=== PATIENT | male | born 1960 | race Caucasian/White ===

== ENCOUNTER 2023-01-22 22:09 | Inpatient (IN) | payer OTHER ==
[2023-01-22] MEDS ORDERED: SODIUM CHLORIDE 0.9% 500 ML INFUS.BAG IV ONE (23:53)
[2023-01-22] MEDS ORDERED: FAMOTIDINE 20 MG/50 ML IVPB 20 MG/50 ML MG IVPB ONE (23:53)
[2023-01-22] MEDS ORDERED: ACETAMINOPHEN 1000 MG/100 ML BAG IVPB ONE (23:53)
[2023-01-23] MEDS ORDERED: ACETAMINOPHEN INJECTION 100 ML IVPB ONE (00:04)
[2023-01-23] MEDS ORDERED: FAMOTIDINE 20 MG/50 ML IVPB 20 MG/50 ML MG IVPB ONE (00:05)
[2023-01-23 00:32] LABS: BASO % 0.4 % (0-2.0); HEMATOCRIT 42.5 % (35.4-49); HEMOGLOBIN 14.1 GM/dL (11.7-16.9); INR 1.35 (0.83-1.09); LYMPH % 10.7 % (8-40); MCH 28.8 pg (25.7-33.7); MCHC 33.2 g/dl (32.0-35.9); MEAN CELL VOLUME 86.8 fl (80-96); MEAN PLT VOLUME 7.5 fl (7.5-11.1); MONO % 10.5 % (3.8-10.2); NEUT % 77.4 % (42.8-82.8); PLATELET COUNT 361 10^3/uL (134-434); PROTHROMBIN TIME (PATIENT) 15.6 SEC (9.7-13.0); RDW 14.7 % (11.9-15.9); WHITE BLOOD COUNT 13.1 K/mm3 (4.0-10.0)
[2023-01-23 00:33] LABS: EPI CELLS 4 /uL (0-25.1); HYALINE CASTS 2 /uL (0-3.1); PH,URINE 5.5 (5.0-8.0); URINE APPEARANCE CLEAR; URINE BACTERIA 8 /uL (0-1359); URINE BILIRUBIN NEGATIVE (NEGATIVE); URINE COLOR DK YELLOW; URINE GLUCOSE (UA) NEGATIVE (NEGATIVE); URINE KETONE 1+ (NEGATIVE); URINE LEUK ESTERASE NEGATIVE (NEGATIVE); URINE NITRITE NEGATIVE (NEGATIVE); URINE PROTEIN 1+ (NEGATIVE); URINE RBC 27 /uL (0-23.9); URINE WBC 18 /uL (0-25.8)
[2023-01-23 00:34] LABS: ACTIVATED PTT 33.8 SECONDS (25.2-36.5)
[2023-01-23 00:48] LABS: POTASSIUM 3.9 mmol/L (3.5-5.1)
[2023-01-23 00:50] LABS: ALBUMIN 3.4 g/dl (3.4-5.0); BLOOD UREA NITROGEN 10.6 mg/dL (7-18); CALCIUM 9.4 mg/dL (8.5-10.1)
[2023-01-23 00:53] LABS: CREATININE 0.9 mg/dL (0.55-1.3)
[2023-01-23 00:55] LABS: BILIRUBIN,TOTAL 0.7 mg/dL (0.2-1)
[2023-01-23] MEDS ORDERED: PIPERACILLIN/TAZOB 4.5 GM 4.5 GM in DEXTROSE 5%-WATER 100 ML IVPB ONE (03:01)
[2023-01-23] MEDS ORDERED: PIPERACILLIN/TAZOB 4.5 GM 4.5 GM/100 ML BAG IVPB ONE (03:09)
[2023-01-23] MEDS ORDERED: ONDANSETRON 4 MG/2 ML VIAL IVPUSH ONE (03:21)
[2023-01-23] MEDS ORDERED: SODIUM CHLORIDE 0.9% 500 ML INFUS.BAG IV ONE (03:22)
[2023-01-23] MEDS ORDERED: ONDANSETRON 4 MG/2 ML VIAL ONE (03:24)
[2023-01-23] MEDS ORDERED: PIPERACILLIN/TAZOB 3.375 GM 3.375 GM in DEXTROSE 5%-WATER - 50 ML IVPB SCH ×2 (05:30→09:00)
[2023-01-23 06:27] LABS: HEMATOCRIT 40.1 % (35.4-49); HEMOGLOBIN 13.5 GM/dL (11.7-16.9); MCH 29.2 pg (25.7-33.7); MCHC 33.6 g/dl (32.0-35.9); MEAN PLT VOLUME 7.3 fl (7.5-11.1); PLATELET COUNT 333 10^3/uL (134-434); RBC 4.61 M/mm3 (4.00-5.60); RDW 14.8 % (11.9-15.9); WHITE BLOOD COUNT 12.2 K/mm3 (4.0-10.0)
[2023-01-23 06:44] LABS: POTASSIUM 3.6 mmol/L (3.5-5.1)
[2023-01-23 06:46] LABS: ALBUMIN 2.9 g/dl (3.4-5.0); BLOOD UREA NITROGEN 7.7 mg/dL (7-18); CALCIUM 8.5 mg/dL (8.5-10.1)
[2023-01-23 06:47] LABS: MAGNESIUM 1.9 mg/dL (1.8-2.4)
[2023-01-23 06:49] LABS: CREATININE 0.8 mg/dL (0.55-1.3); PHOSPHOROUS 3.4 mg/dL (2.5-4.9)
[2023-01-23 06:51] LABS: TOT PROT 7.1 g/dl (6.4-8.2)
[2023-01-23] MEDS: LOSARTAN POTASSIUM 25 MG TABLET PO SCH ×2 (10:00→12:29)
[2023-01-23] MEDS: ENOXAPARIN NA (PORCINE) 40 MG/0.4 ML DISP.SYRIN SQ SCH (12:00)
[2023-01-23] MEDS: CEFTRIAXONE 2 GM in DEXTROSE 5%-WATER 100 ML IVPB SCH (12:01)
[2023-01-23] MEDS ORDERED: morphine SULFATE 4 MG/ML VIAL IVPUSH PRN (12:07)
[2023-01-23] MEDS ORDERED: ACETAMINOPHEN 1000 MG/100 ML BAG IVPB PRN (12:07)
[2023-01-23] MEDS ORDERED: ONDANSETRON 4 MG/2 ML VIAL IVPUSH PRN (12:14)
[2023-01-23 13:28] VITALS: RESP 18; BMI 26.7
[2023-01-23] MEDS ORDERED: LORazepam 1 MG TABLET PO PRN (13:38)
[2023-01-23] MEDS: DEXTROSE 5%-NORMAL SALINE 1,000 ML IV SCH (13:53)
[2023-01-23] MEDS ORDERED: NALOXONE HCL 0.4 MG/ML VIAL IVPUSH PRN (15:16)
[2023-01-24] MEDS: SODIUM CHLORIDE 1,000 ML IV SCH (05:50)
[2023-01-24] MEDS: DEXTROSE 5%-NORMAL SALINE 1,000 ML IV SCH ×3 (06:00→23:06)
[2023-01-24 08:53] LABS: BASO % 0.4 % (0-2.0); EOS % 1.1 % (0-4.5); HEMATOCRIT 39.9 % (35.4-49); HEMOGLOBIN 13.1 GM/dL (11.7-16.9); LYMPH % 11.2 % (8-40); MCH 28.7 pg (25.7-33.7); MEAN CELL VOLUME 86.9 fl (80-96); MEAN PLT VOLUME 7.9 fl (7.5-11.1); MONO % 10.7 % (3.8-10.2); NEUT % 76.6 % (42.8-82.8); PLATELET COUNT 353 10^3/uL (134-434); RBC 4.59 M/mm3 (4.00-5.60); RDW 14.5 % (11.9-15.9); WHITE BLOOD COUNT 11.9 K/mm3 (4.0-10.0)
[2023-01-24 09:17] LABS: POTASSIUM 3.6 mmol/L (3.5-5.1)
[2023-01-24 09:30] LABS: BLOOD UREA NITROGEN 7.1 mg/dL (7-18)
[2023-01-24 09:32] LABS: CREATININE 0.8 mg/dL (0.55-1.3)
[2023-01-24 09:34] LABS: TOT PROT 7.1 g/dl (6.4-8.2)
[2023-01-24 09:35] LABS: BILIRUBIN,TOTAL 0.9 mg/dL (0.2-1)
[2023-01-24] MEDS: ENOXAPARIN NA (PORCINE) 40 MG/0.4 ML DISP.SYRIN SQ SCH (09:56)
[2023-01-24] MEDS: CEFTRIAXONE 2 GM in DEXTROSE 5%-WATER 100 ML IVPB SCH (09:56)
[2023-01-24] MEDS: LOSARTAN POTASSIUM 25 MG TABLET PO SCH (09:56)
[2023-01-25] MEDS: SODIUM CHLORIDE 1,000 ML IV SCH (08:25)
[2023-01-25] MEDS: CEFTRIAXONE 2 GM in DEXTROSE 5%-WATER 100 ML IVPB SCH (10:06)
[2023-01-25] MEDS: ENOXAPARIN NA (PORCINE) 40 MG/0.4 ML DISP.SYRIN SQ SCH (10:07)
[2023-01-25] MEDS: LOSARTAN POTASSIUM 25 MG TABLET PO SCH (10:07)
[2023-01-25 10:16] VITALS: BP 129/81; PULSE 81; TEMP 98.8
[2023-01-25 10:42] LABS: HEMATOCRIT 38.9 % (35.4-49); HEMOGLOBIN 12.9 GM/dL (11.7-16.9); MCH 28.5 pg (25.7-33.7); MCHC 33.3 g/dl (32.0-35.9); MEAN CELL VOLUME 85.5 fl (80-96); PLATELET COUNT 337 10^3/uL (134-434); RBC 4.55 M/mm3 (4.00-5.60); RDW 14.5 % (11.9-15.9); WHITE BLOOD COUNT 9.7 K/mm3 (4.0-10.0)
== END 2023-01-25 14:16 | disposition left against medical advice (07) | DRG 244 ==
LOC: JER 22:09 → JERBED 01-23 03:57 → J5S 01-23 07:32
PROVIDERS: ADMIT Internal Medicine; ATTEND Student in an Organized Health Care Education/Training Program
DX: K57.20 Diverticulitis of large intestine with perforation and abscess without bleeding (principal); I25.10 Atherosclerotic heart disease of native coronary artery without angina pectoris; I10 Essential (primary) hypertension; F10.10 Alcohol abuse, uncomplicated; F17.210 Nicotine dependence, cigarettes, uncomplicated; K76.0 Fatty (change of) liver, not elsewhere classified; Z95.5 Presence of coronary angioplasty implant and graft
CPT/HCPCS: 36415; 74177-TC; 80053; 81003; 83605; 83735; 84100; 85025; 85027; 85610; 85730; 86850; 86900; 86901; 87040; 87086; 93005; 93010; 99285-25